=== PATIENT | female | born 2000 | race Caucasian/White ===

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

== ENCOUNTER 2022-03-13 18:39 | Emergency (ER) | payer BC, OTHER ==
[2022-03-13 18:45] VITALS: BP 119/78; PULSE 71; RESP 20; TEMP 97.7
[2022-03-13] MEDS ORDERED: ACET/COD 300 MG/30 MG STARTER PACK 6 TAB BTL PO STA (19:08)
--- NOTE | 2022-03-13 19:08 | ED ---
General Adult HPI - General Chief complaint: Dental/Oral Stated complaint: Tooth Ache Time Seen by Provider: 03/13/22 18:50 Source: patient, RN notes reviewed, old records reviewed Mode of arrival: ambulatory Limitations: no limitations - History of Present Illness Initial comments: This is a 22-year-old female presents emergency Department with a toothache on the right lower premolar. Patient states she went and saw her dentist today the dentist gave her amoxicillin and told to take Motrin. Patient comes in today stating that the Motrin doesn't appear to be taking with the pain and she feels like she is a little short of breath but she thinks it could be her anxiety. Patient denies any rashes. Patient denies any swelling of the throat. Patient has no known ALLERGIES. Patient states the pain is no better but to her dentist told it would take at least 24 hours. Patient's dentist also told that she would need a root canal. Eyes any chest pain. Patient denies any other symptoms at this time - Related Data Previous Rx's Medication Instructions Recorded Ondansetron Odt [Zofran ODT] 4 mg PO Q8HR PRN #10 tab 05/31/15 Allergies Allergy/AdvReac Type Severity Reaction Status Date / Time No Known Allergies Allergy Verified 03/13/22 18:45 Review of Systems ROS Statement: Those systems with pertinent positive or pertinent negative responses have been documented in the HPI. ROS Other: All systems not noted in ROS Statement are negative. Past Medical History Additional Past Medical History / Comment(s): migranes. History of Any Multi-Drug Resistant Organisms: None Reported Past Surgical History: No Surgical Hx Reported Past Psychological History: Anxiety Smoking Status: Never smoker Past Alcohol Use History: None Reported Past Drug Use History: None Reported General Exam - General Exam Comments Initial Comments: GENERAL Patient is well-developed and well-nourished. Patient is in mild distress. Patient is in no respiratory distress her oxygenation is 100% on room air and she is not tachypneic. EYES Patient's pupils are equal and round. Extraocular motion is intact TEETH Patient's tooth that is painful has a silver cap on it there is no abscess or fluctuant area noted. SKIN Unremarkable NEURO The patient is alert and oriented 3 PYSCH Patient has normal interpersonal interactions. MUSCULOSKELETAL All 4 extremities have full range of motion Limitations: no limitations Course Vital Signs 03/13/22 18:40 Temperature 97.7 F Pulse Rate 71 Respiratory 20 Rate Blood Pressure 119/78 O2 Sat by Pulse 99 Oximetry Medical Decision Making - Medical Decision Making Was pt. sent in by a medical professional or institution ([facility]ANET Dumont, [employer], urgent care, hospital, or longterm...) When possible be specific @ -No Did you speak to anyone other than the patient for history (EMS, parent, family, police, friend...)? What history was obtained from this source @ -No Did you review nursing and triage notes (agree or disagree)? Why? @ -I reviewed and agree with nursing and triage notes Were old charts reviewed (outside hosp., previous admission, EMS record, old EKG, old radiological studies, urgent care reports/EKG's, longterm records)? Report findings @ -No old charts were reviewed Differential Diagnosis (chest pain, altered mental status, abdominal pain women, abdominal pain men, vaginal bleeding, weakness, fever, dyspnea, syncope, headache, dizziness, GI bleed, back pain, seizure, CVA, palpatations, mental health)? @ -not applicable EKG interpreted by me (3pts min.). @ -As above X-rays interpreted by me (1pt min.). @ -None done CT interpreted by me (1pt min.). @ -None done U/S interpreted by me (1pt. min.). @ -None done What testing was considered but not performed or refused? (CT, X-rays, U/S, labs)? Why? @ -None What meds were considered but not given or refused? Why? @ -None Did you discuss the management of the patient with other professionals (professionals i.e. JANET Dumont, [employer], lab, RT, psych nurse, social media campaign manager, face cleaner, teacher, eeo officer, telephonic case manager)? Give summary @ -No Was smoking cessation discussed for >3mins.? @ -No Was critical care preformed (if so, how long)? @ -No Were there social determinants of health that impacted care today? How? (Homelessness, low income, unemployed, alcoholism, drug addiction, transportation, low edu. Level, literacy, decrease access to med. care, residential, rehab)? @ -No Was there de-escalation of care discussed even if they declined (Discuss DNR or withdrawal of care, Hospice)? DNR status @ -No What co-morbidities impacted this encounter? (DM, HTN, Smoking, COPD, CAD, Cancer, CVA, ARF, Chemo, Hep., AIDS, mental health diagnosis, sleep apnea, morbid obesity)? @ -None Was patient admitted / discharged? Hospital course, mention meds given and route, prescriptions, significant lab abnormalities, going to OR and other pertinent info. @ -Was in no respiratory distress patient's airway. There was no edema to the tonsils or uvula. Patient had no area of fluctuance in the mouth. Patient no swelling to the throat and she was swallowing saliva without any problem. Undiagnosed new problem with uncertain prognosis? @ -No Drug Therapy requiring intensive monitoring for toxicity (Heparin, Nitro, Insulin, Cardizem)? @ -No Were any procedures done? @ -No Diagnosis/symptom? @ -Dental infection Acute, or Chronic, or Acute on Chronic? @ -Acute Uncomplicated (without systemic symptoms) or Complicated (systemic symptoms)? @ -Uncomplicated Side effects of treatment? @ -No Exacerbation, Progression, or Severe Exacerbation? @ -No Poses a threat to life or bodily function? How? (Chest pain, [place], [place], pneumonia, PE, COPD, DKA, ARF, appy, cholecystitis, CVA, Diverticulitis, Homicidal, Suicidal, threat to staff... and all critical care pts) @ -No Disposition Clinical Impression: Toothache Disposition: HOME SELF-CARE Condition: Good Instructions (If sedation given, give patient instructions): Toothache (ED) Additional Instructions: Patient continue amoxicillin as previously prescribed. Patient should take Motrin every 6 hours. Patient should take Tylenol with Codeine when necessary for pain Is patient prescribed a controlled substance at d/c from ED?: No Referrals: Greg Salinas DO [Primary Care Provider] - 1-2 days Time of Disposition: 19:07
== END 2022-03-13 19:51 | disposition home or self-care (01) ==
LOC: EC 18:39
DX: K08.89 Other specified disorders of teeth and supporting structures (principal); F41.9 Anxiety disorder, unspecified
CPT/HCPCS: 99282